=== PATIENT | male | born 1945 | race Caucasian/White ===

== ENCOUNTER 2021-02-25 09:22 | Outpatient (RCR) | payer MEDICARE, OTHER | END 2021-05-26 | disposition home or self-care (01) | LOC: ONC 09:22 | PROVIDERS: ATTEND Radiology Radiation Oncology | DX: C61 Malignant neoplasm of prostate (principal); K21.9 Gastro-esophageal reflux disease without esophagitis; I10 Essential (primary) hypertension; E55.9 Vitamin D deficiency, unspecified | CPT/HCPCS: 76873; G0463; 99204 ==

== ENCOUNTER → 2021-06-18 | Outpatient (CLI) | payer MEDICARE, OTHER | END | disposition home or self-care (01) | LOC: PREOP 05:34 | PROVIDERS: ATTEND Radiology Radiation Oncology | DX: Z01.818 Encounter for other preprocedural examination (principal) ==

== ENCOUNTER 2021-09-17 05:28 | Outpatient (CLI) | payer MEDICARE, OTHER ==
[~2021-09-17] VITALS: Ht 182.9 cm; Wt 90.5 kg
[2021-09-18] MEDS ORDERED: POTA-51 PO (12:19)
[2021-09-18] MEDS ORDERED: ASPI81TA16 PO (12:19)
[2021-09-18] MEDS ORDERED: HYDR25TA4 PO (12:19)
[2021-09-18] MEDS ORDERED: ERGO1250 PO (12:19)
[2021-09-18] MEDS ORDERED: LISI40TA9 PO (12:19)
[2021-09-18] MEDS ORDERED: OMEP40CA6 PO (12:19)
== END 2021-09-18 13:11 | disposition home or self-care (01) ==
LOC: PREOP 05:28
PROVIDERS: ATTEND Radiology Radiation Oncology
DX: Z01.818 Encounter for other preprocedural examination (principal)

== ENCOUNTER 2021-09-24 09:14 | Day surgery (SDC) | payer MEDICARE, OTHER ==
[2021-09-24] VITALS (10 sets, daily range): BP systolic 137–156; BP diastolic 80–99
[~2021-09-24] VITALS: Ht 182.9 cm; Wt 90.5 kg
[~2021-09-24 09:14] MED LIST: ASPI81TA16 PO; ERGO1250 PO; HYDR25TA4 PO; LISI40TA9 PO; OMEP40CA6 PO; POTA-51 PO
[2021-09-24] MEDS ORDERED: LACTATED RINGERS 1,000 ML IV PRN (09:30)
--- NOTE | 2021-09-24 11:13 | Progress Note-Pre Operative ---
Pre-Operative Progress Note H&P Reviewed The H&P was reviewed, patient examined and no changes noted. Date Seen by Provider: Sep 24, 2021 Time Seen by Provider: 11:12 Date H&P Reviewed: Sep 24, 2021 Time H&P Reviewed: 11:12 Pre-Operative Diagnosis: Prostate cancer cT1c, PSA 7.02, [place] 8 (4+4) WILLARD STARR MD Sep 24, 2021 11:13
[2021-09-24] MEDS ORDERED: CIPR-226 PO (11:17)
[2021-09-24] MEDS ORDERED: ACET1TAB43 PO (11:17)
--- NOTE | 2021-09-24 11:19 | Discharge Inst-Simple/Standard ---
Discharge Inst-Standard Reconcile Patient Problems Problems Reviewed?: Yes Discharge Medications New, Converted or Re-Newed RX: Other (scripts already called in for pt per Evelia) Patient Instructions/Follow Up Plan of Care/Instructions/FU: 1) one month post implant scan at [facility] cancer center October 27, 2021 at 12:30 pm 2) one month post op follow up with Dr. Bustamante October 27, 2021 at 2:30 pm Activity as Tolerated: Yes Discharge Diet: No Restrictions Other Inst to Patient Please instruct patient on flores catheter care and how to remove catheter on Wednesday morning 09/29/21 at home. WILLARD STARR MD Sep 24, 2021 11:19
[2021-09-24] MEDS ORDERED: NEO/POLY/BAC (NEOSPORIN) OINT 15 GM TUBE ONE (11:44)
--- NOTE | 2021-09-24 13:05 | Anesthesia-General Post-Op ---
General Patient Condition Mental Status/LOC: Same as Preop Cardiovascular: Satisfactory Nausea/Vomiting: Absent Respiratory: Satisfactory Pain: Controlled Complications: Absent Post Op Complications Complications None Follow Up Care/Instructions Patient Instructions None needed. Anesthesia/Patient Condition Patient Condition Patient is doing well, no complaints, stable vital signs, no apparent adverse anesthesia problems. No complications reported per nursing. LIZZIE BARRIENTOS CRNA Sep 24, 2021 13:05
[2021-09-24] MEDS ORDERED: morphine INJ 10 MG/ML 1ML (SYR OR VIAL) IVP ONE (13:15)
[2021-09-24] MEDS ORDERED: ONDANSETRON 4 MG/2 ML (SDV) Z0FRAN IVP PRN (13:15)
[2021-09-24] MEDS ORDERED: fentaNYL INJ 100 MCG/2 ML AMP IVP ONE (13:15)
[2021-09-24] MEDS ORDERED: MEPERIDINE (DEMEROL) INJ 50 MG/ML IVP ONE (13:15)
--- NOTE | 2021-09-24 13:18 | Progress Note-Post Operative ---
Post-Operative Progess Note Surgeon (s)/Insurance Sales Specialist (s) Surgeon WILLARD STARR MD Insurance Sales Specialist: Nirmala LEON MD Pre-Operative Diagnosis Prostate cancer cT1c, PSA 7.02, [place] 8 (4+4) Post-Operative Diagnosis Same as pre-op Procedure & Operative Findings Date of Procedure 09/24/21 Procedure Performed/Findings (1) 67% attenuated Cesium 131 permanent prostate seed implant (2) Injection of biodegradable hydrogel prostate-rectal spacer utilizing the [employer] [place] system (3) Cystogram Prostate volume 27.5 cc Anesthesia Type General Estimated Blood Loss Estimated blood loss (mL): Minimal Specimens/Packing Specimens Removed None Packing: N/A WILLARD STARR MD Sep 24, 2021 13:18
--- NOTE | 2021-09-24 13:30 | Diagnostic Imaging Report ---
INDICATION: Fluoroscopy for prostate brachytherapy. Fluoroscopy was provided during prostate brachytherapy. 16 seconds of fluoroscopic time was utilized. A single image was obtained demonstrating multiple radiation seed implants within the prostate gland. IMPRESSION: Fluoroscopy during brachytherapy. Dictated by: Dictated on workstation # [id number]
== END 2021-09-24 15:08 | disposition home or self-care (01) ==
LOC: SDC 09:14
PROVIDERS: ATTEND Radiology Radiation Oncology
DX: C61 Malignant neoplasm of prostate (principal); K21.9 Gastro-esophageal reflux disease without esophagitis; Z79.899 Other long term (current) drug therapy
CPT/HCPCS: 55874; 55876; 76000; 76965; 77290; 77318; 77332; 77370; 77470; 77778; 87081; C1715 ×2; C1889; C2643

== ENCOUNTER 2021-10-27 11:08 | Outpatient (RCR) | payer MEDICARE, OTHER ==
[~2021-10-27 11:08] MED LIST changes: +ACET-11 PO; +CIPR-226 PO
== END 2021-11-11 | disposition home or self-care (01) ==
LOC: ONC 11:08
PROVIDERS: ATTEND Radiology Radiation Oncology
DX: Z51.0 Encounter for antineoplastic radiation therapy (principal); C61 Malignant neoplasm of prostate; K21.9 Gastro-esophageal reflux disease without esophagitis; I10 Essential (primary) hypertension; E55.9 Vitamin D deficiency, unspecified
CPT/HCPCS: 77290

== ENCOUNTER → 2021-12-11 | Outpatient (RCR) | payer MEDICARE, OTHER | END | disposition home or self-care (01) | LOC: ONC 11-12 09:46 | PROVIDERS: ATTEND Radiology Radiation Oncology | DX: Z51.0 Encounter for antineoplastic radiation therapy (principal); C61 Malignant neoplasm of prostate; K21.9 Gastro-esophageal reflux disease without esophagitis; I10 Essential (primary) hypertension; E55.9 Vitamin D deficiency, unspecified | CPT/HCPCS: 77295; 77300; 77301; 77334; 77336; 77338; 77385; 77386; 77470 ==

== ENCOUNTER 2022-01-22 10:29 | Outpatient (RCR) | payer MEDICARE, OTHER | END 2022-02-11 | disposition home or self-care (01) | LOC: ONC 10:29 | PROVIDERS: ATTEND Radiology Radiation Oncology | DX: C61 Malignant neoplasm of prostate (principal); K21.9 Gastro-esophageal reflux disease without esophagitis; I10 Essential (primary) hypertension; E55.9 Vitamin D deficiency, unspecified; Z12.5 Encounter for screening for malignant neoplasm of prostate | CPT/HCPCS: G0103; G0463; 36415; 84153; 99213 ==